=== PATIENT | male | born 1990 | race Two or more races ===

== ENCOUNTER 2018-11-30 14:17 | Emergency (ER) | payer BC ==
[~2018-11-30] VITALS: Ht 175.3 cm; Wt 136.5 kg
[2018-11-30] MEDS ORDERED: MORPHINE SULFATE 4 MG/ML SYRINGE IVP ONE (14:30)
[2018-11-30] MEDS ORDERED: ONDANSETRON HCL 4 MG/2 ML VIAL IVP ONE (14:30)
[2018-11-30] MEDS ORDERED: FentaNYL CITRATE-PF 100 MCG/2 ML VIAL IVP ONE (15:00)
[2018-11-30] MEDS ORDERED: MIDAZOLAM HCL 5 MG/ML VIAL IVP ONE (15:00)
[2018-11-30 17:49] VITALS: BP 128/69
== END 2018-11-30 18:33 | disposition home or self-care (01) ==
LOC: EMS 14:18
DX: S82.52XA Displaced fracture of medial malleolus of left tibia, initial encounter for closed fracture (principal); S82.832A Other fracture of upper and lower end of left fibula, initial encounter for closed fracture; F17.210 Nicotine dependence, cigarettes, uncomplicated; F12.90 Cannabis use, unspecified, uncomplicated; W17.89XA Other fall from one level to another, initial encounter; Y93.01 Activity, walking, marching and hiking; Y92.89 Other specified places as the place of occurrence of the external cause; Y99.8 Other external cause status
CPT/HCPCS: 27818; 73590; 73610; 96374; 96375; 99152; 99285; J2250; J2270; J2405; J3010; 29505